=== PATIENT | female | born 1970 | race African-American/Black ===

== ENCOUNTER 2022-03-14 14:06 | Inpatient (IN) | payer OTHER ==
[2022-03-14 16:00] LABS: BASO % 0.4 % (0-2.0); EOS % 1.9 % (0-4.5); HEMATOCRIT 33.1 % (32.4-45.2); HEMOGLOBIN 10.3 GM/dL (10.7-15.3); LYMPH % 25.6 % (8-40); MCH 25.3 pg (25.7-33.7); MCHC 31.1 g/dl (32.0-36.0); MEAN CELL VOLUME 81.4 fl (80-96); MEAN PLT VOLUME 10.2 fl (7.5-11.1); MONO % 11.9 % (3.8-10.2); NEUT % 60.2 % (42.8-82.8); PLATELET COUNT 187 10^3/uL (134-434); RBC 4.06 M/mm3 (3.60-5.2); RDW 17.1 % (11.6-15.6); WHITE BLOOD COUNT 7.5 K/mm3 (4.0-10.0)
[2022-03-14 16:06] LABS: INR 0.88 (0.83-1.09); PROTHROMBIN TIME (PATIENT) 10.1 SEC (9.7-13.0)
[2022-03-14 16:09] LABS: ACTIVATED PTT 33.8 SECONDS (25.2-36.5)
[2022-03-14 16:24] LABS: CALCIUM 7.9 mg/dL (8.5-10.1)
[2022-03-14 16:25] LABS: ALBUMIN 3.3 g/dl (3.4-5.0); BLOOD UREA NITROGEN 27.5 mg/dL (7-18)
[2022-03-14 16:28] LABS: CREATININE 0.9 mg/dL (0.55-1.3)
[2022-03-14 16:29] LABS: TOT PROT 6.2 g/dl (6.4-8.2)
[2022-03-14 16:30] LABS: BILIRUBIN,TOTAL 0.2 mg/dL (0.2-1)
[2022-03-14 16:33] LABS: N-TERMINAL BNP 52.8 pg/ml (5-125)
[2022-03-14] MEDS ORDERED: FUROSEMIDE 40 MG/4 ML INJECTABLE VIAL IVPUSH ONE ×2 (16:34→18:03)
[2022-03-14] MEDS ORDERED: FUROSEMIDE 40 MG/4 ML INJECTABLE VIAL ONE ×2 (16:45→18:09)
[2022-03-14] MEDS ORDERED: ACETAMINOPHEN 1000 MG/100 ML BAG IVPB ONE (17:01)
[2022-03-14] MEDS ORDERED: ACETAMINOPHEN INJECTION 100 ML IVPB ONE (17:23)
[2022-03-14] MEDS ORDERED: ACETAMINOPHEN 325 MG TABLET (FP) PO PRN (19:12)
[2022-03-14 19:33] LABS: PH,URINE 6.5 (5.0-8.0); URINE APPEARANCE CLEAR; URINE BILIRUBIN NEGATIVE (NEGATIVE); URINE COLOR YELLOW; URINE GLUCOSE (UA) NEGATIVE (NEGATIVE); URINE KETONE NEGATIVE (NEGATIVE); URINE LEUK ESTERASE NEGATIVE (NEGATIVE); URINE NITRITE NEGATIVE (NEGATIVE); URINE PROTEIN NEGATIVE (NEGATIVE); URINE UROBILINOGEN 0.2 mg/dL (0.2-1.0)
[2022-03-14] MEDS ORDERED: ACETAMINOPHEN 325 MG TABLET (FP) ONE (19:46)
[2022-03-14] MEDS ORDERED: PATIENT'S OWN MEDICATION (NON-FORMULARY) (Ubrogepant [Ubrelvy] 100 MG Tablet) PO PRN (19:48)
[2022-03-14] MEDS ORDERED: ONDANSETRON *ODT* 4 MG TABLET SL PRN (19:48)
[2022-03-14] MEDS ORDERED: SENNOSIDES 8.6MG TABLET (FP) PO PRN (19:48)
[2022-03-14] MEDS ORDERED: fentaNYL 75mcg/hr PATCH.TD72 TD SCH (20:00)
[2022-03-14] MEDS ORDERED: CHOLECALCIFEROL (VIT D3) 1,000 UNIT (25 MCG) TABLET PO SCH (20:00)
[2022-03-14] MEDS ORDERED: PATIENT'S OWN MEDICATION (NON-FORMULARY) (Galcanezumab-Gnlm [Emgality Pen] 120 MG/ML Pen.I SQ SCH (20:00)
[2022-03-14] MEDS ORDERED: ESTRADIOL TD SCH (20:00)
[2022-03-14] MEDS ORDERED: PREGABALIN 50 MG CAPSULE ONE (21:21)
[2022-03-14] MEDS ORDERED: PANTOPRAZOLE 40 MG TABLET PO ONE (21:22)
[2022-03-14] MEDS ORDERED: HEPARIN NA (PORCINE) 5,000 UNITS/ML 1ML VIAL ONE (21:22)
[2022-03-14] MEDS ORDERED: PREGABALIN 25 MG CAPSULE ONE (21:22)
[2022-03-14] MEDS: PANTOPRAZOLE 40 MG TABLET PO SCH (21:28)
[2022-03-14] MEDS: HEPARIN NA (PORCINE) 5,000 UNITS/ML 1ML VIAL SQ SCH (21:28)
[2022-03-14] MEDS: PREGABALIN 25 MG CAPSULE PO SCH (21:28)
[2022-03-14] MEDS ORDERED: TIZANIDINE HCL 4 MG TABLET PO SCH (22:00)
[2022-03-14] MEDS ORDERED: METHOCARBAMOL 500 MG TABLET ONE (22:15)
[2022-03-14] MEDS: HYDROXYCHLOROQUINE SO4 200 MG TABLET (FP) PO SCH (22:18)
[2022-03-14] MEDS: METHOCARBAMOL 500 MG TABLET PO SCH (22:18)
[2022-03-14 22:42] VITALS: BMI 31.2
[2022-03-15] MEDS: PREGABALIN 25 MG CAPSULE PO SCH ×3 (05:25→21:21)
[2022-03-15] MEDS: METHOCARBAMOL 500 MG TABLET PO SCH ×3 (05:25→22:13)
[2022-03-15] MEDS: FUROSEMIDE 40 MG/4 ML INJECTABLE VIAL IVPUSH SCH ×2 (05:26→14:00)
[2022-03-15] MEDS: HEPARIN NA (PORCINE) 5,000 UNITS/ML 1ML VIAL SQ SCH ×3 (05:28→21:27)
[2022-03-15 08:04] LABS: BASO % 0.6 % (0-2.0); HEMATOCRIT 36.3 % (32.4-45.2); LYMPH % 30.4 % (8-40); MCH 24.9 pg (25.7-33.7); MCHC 30.3 g/dl (32.0-36.0); MEAN CELL VOLUME 82.2 fl (80-96); MEAN PLT VOLUME 10.3 fl (7.5-11.1); MONO % 9.3 % (3.8-10.2); NEUT % 57.7 % (42.8-82.8); PLATELET COUNT 170 10^3/uL (134-434); RBC 4.41 M/mm3 (3.60-5.2); RDW 17.3 % (11.6-15.6); WHITE BLOOD COUNT 5.5 K/mm3 (4.0-10.0)
[2022-03-15 08:27] LABS: CALCIUM 8.1 mg/dL (8.5-10.1)
[2022-03-15 08:28] LABS: ALBUMIN 3.4 g/dl (3.4-5.0); BLOOD UREA NITROGEN 20.8 mg/dL (7-18)
[2022-03-15 08:31] LABS: CREATININE 0.8 mg/dL (0.55-1.3); PHOSPHOROUS 3.7 mg/dL (2.5-4.9)
[2022-03-15 08:32] LABS: TOT PROT 6.5 g/dl (6.4-8.2)
[2022-03-15 08:33] LABS: BILIRUBIN,TOTAL 0.2 mg/dL (0.2-1)
[2022-03-15] MEDS ORDERED: METOPROLOL TARTRATE 25 MG TABLET (FP) PO SCH (10:00)
[2022-03-15] MEDS ORDERED: PATIENT'S OWN MEDICATION (NON-FORMULARY) (Dextroamphetamine/Amphetamine [Adderall Xr 20 Mg PO SCH (10:00)
[2022-03-15] MEDS ORDERED: PNEUMOC 20-VAL CONJ-DIP CRM/PF 0.5 ML SYRINGE IM ONE (10:00)
[2022-03-15] MEDS ORDERED: PATIENT'S OWN MEDICATION (NON-FORMULARY) (Atogepant [Qulipta] 60 MG Tablet) PO SCH (10:00)
[2022-03-15] MEDS ORDERED: IRON CARBONYL 45 MG PO SCH (10:00)
[2022-03-15] MEDS ORDERED: PATIENT'S OWN MEDICATION (NON-FORMULARY) (Leflunomide [Arava] 20 MG Tablet) PO SCH (10:00)
[2022-03-15] MEDS: predniSONE 5 MG TABLET (UD) PO SCH (10:05)
[2022-03-15] MEDS: POTASSIUM CHLORIDE TABS 20 MEQ TABLET.ER (FP) PO SCH (10:05)
[2022-03-15] MEDS: HYDROXYCHLOROQUINE SO4 200 MG TABLET (FP) PO SCH ×2 (10:06→22:12)
[2022-03-15] MEDS: CALCITRIOL 0.25 MCG CAPSULE (FP) PO SCH (10:06)
[2022-03-15] MEDS: FLUoxetine HCL 20 MG CAPSULE PO SCH (10:06)
[2022-03-15] MEDS: CALCIUM (OYSTER SHELL) 500 MG TABLET (FP) PO SCH (11:20)
[2022-03-15] MEDS: ARIPiprazole 2 MG TABLET PO SCH (11:20)
[2022-03-15 12:08] LABS: SARS-CoV-2 NAA Not Detected (Not Detected)
[2022-03-15] MEDS ORDERED: MOMETASONE FUROATE 220 MCG/IH INHALER IH SCH (18:00)
[2022-03-15] MEDS: metoPROLOL SUCCINATE 25 MG TAB.SR.24H (FP) PO SCH (21:22)
[2022-03-15] MEDS: PANTOPRAZOLE 40 MG TABLET PO SCH (21:22)
[2022-03-16] MEDS: HEPARIN NA (PORCINE) 5,000 UNITS/ML 1ML VIAL SQ SCH ×2 (05:33→14:00)
[2022-03-16] MEDS: FUROSEMIDE 40 MG/4 ML INJECTABLE VIAL IVPUSH SCH ×2 (05:33→13:57)
[2022-03-16] MEDS: PREGABALIN 25 MG CAPSULE PO SCH ×2 (05:39→13:59)
[2022-03-16] MEDS: METHOCARBAMOL 500 MG TABLET PO SCH ×2 (05:40→13:59)
[2022-03-16 09:18] VITALS: PULSE 60
[2022-03-16] MEDS: CALCITRIOL 0.25 MCG CAPSULE (FP) PO SCH (09:18)
[2022-03-16] MEDS: CALCIUM (OYSTER SHELL) 500 MG TABLET (FP) PO SCH (09:19)
[2022-03-16] MEDS: FLUoxetine HCL 20 MG CAPSULE PO SCH (09:19)
[2022-03-16] MEDS: metoPROLOL SUCCINATE 25 MG TAB.SR.24H (FP) PO SCH (09:19)
[2022-03-16 09:23] LABS: BASO % 0.3 % (0-2.0); EOS % 1.5 % (0-4.5); HEMATOCRIT 34.5 % (32.4-45.2); LYMPH % 27.1 % (8-40); MCH 25.9 pg (25.7-33.7); MEAN CELL VOLUME 80.8 fl (80-96); MONO % 10.2 % (3.8-10.2); NEUT % 60.9 % (42.8-82.8); PLATELET COUNT 170 10^3/uL (134-434); RBC 4.27 M/mm3 (3.60-5.2); RDW 17.1 % (11.6-15.6); WHITE BLOOD COUNT 6.1 K/mm3 (4.0-10.0)
[2022-03-16] MEDS: predniSONE 5 MG TABLET (UD) PO SCH (09:23)
[2022-03-16] MEDS: POTASSIUM CHLORIDE TABS 20 MEQ TABLET.ER (FP) PO SCH (09:23)
[2022-03-16] MEDS: ARIPiprazole 2 MG TABLET PO SCH (09:23)
[2022-03-16] MEDS: HYDROXYCHLOROQUINE SO4 200 MG TABLET (FP) PO SCH (09:24)
[2022-03-16 09:50] LABS: CALCIUM 8.7 mg/dL (8.5-10.1)
[2022-03-16 09:51] LABS: BLOOD UREA NITROGEN 23.1 mg/dL (7-18); MAGNESIUM 2.7 mg/dL (1.8-2.4)
[2022-03-16 09:54] LABS: CREATININE 0.8 mg/dL (0.55-1.3); PHOSPHOROUS 3.6 mg/dL (2.5-4.9)
[2022-03-16] MEDS ORDERED: POTASSIUM CHLORIDE TABS 20 MEQ TABLET.ER (FP) PO ONE (12:55)
[2022-03-16 13:59] VITALS: BP 129/65; TEMP 98.4
== END 2022-03-16 16:52 | disposition home or self-care (01) | DRG 291 ==
LOC: JER 14:06 → JERBED 16:45 → J4S 22:34
PROVIDERS: ADMIT Internal Medicine; ATTEND Internal Medicine
DX: I13.0 Hypertensive heart and chronic kidney disease with heart failure and stage 1 through stage 4 chronic kidney disease, or unspecified chronic kidney disease (principal); I50.33 Acute on chronic diastolic (congestive) heart failure; E22.1 Hyperprolactinemia; N18.2 Chronic kidney disease, stage 2 (mild); I42.9 Cardiomyopathy, unspecified; M06.9 Rheumatoid arthritis, unspecified; R60.9 Edema, unspecified; D64.9 Anemia, unspecified; J45.909 Unspecified asthma, uncomplicated; G43.909 Migraine, unspecified, not intractable, without status migrainosus; K21.9 Gastro-esophageal reflux disease without esophagitis; E21.3 Hyperparathyroidism, unspecified; M50.323 Other cervical disc degeneration at C6-C7 level; M54.89 Other dorsalgia; R00.2 Palpitations; Z98.84 Bariatric surgery status
CPT/HCPCS: 36415; 71045-TC-FY; 80048; 80053; 80061; 81003; 83605; 83735; 83880; 84100; 84443; 84484; 85025; 85610; 85730; 93005; 93010; 99285-25; C9803-CS; J1644; U0003; U0005